=== PATIENT | male | born 1990 | race African-American/Black ===

== ENCOUNTER 2017-10-16 15:06 | Emergency (ER) | payer OTHER ==
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
[2017-10-16 15:55] VITALS: BP 134/69
== END 2017-10-16 15:55 | disposition home or self-care (01) ==
LOC: ER 15:06
DX: S06.0X0A Concussion without loss of consciousness, initial encounter (principal); V49.40XA Driver injured in collision with unspecified motor vehicles in traffic accident, initial encounter; R03.0 Elevated blood-pressure reading, without diagnosis of hypertension; R51 Headache; R11.0 Nausea
CPT/HCPCS: 99283